=== PATIENT | female | born 2000 | race American Indian/Alaskan Native ===

== ENCOUNTER 2021-06-29 14:40 | Outpatient (CLI) | payer OTHER ==
[2021-06-29 15:17] LABS: Basophils # (Auto) 0.1 K/mm3 (0.0-0.1); Eosinophils # (Auto) 0.2 K/mm3 (0.0-0.4); Eosinophils % (Auto) 2.3 % (0.0-4.3); Monocytes # (Auto) 1.1 K/mm3 (0.0-0.8); Monocytes % (Auto) 10.3 % (0.0-7.3)
[2021-06-29 15:38] LABS: % Iron Saturation 9.83 %; Alanine Aminotransferase 21 units/L (7-56); Albumin 4.3 g/dL (3.9-5); BUN/Creatinine Ratio 14; Blood Urea Nitrogen 11 mg/dL (7-17); Chol/HDL Ratio 3.97 %; HDL Cholesterol 46 mg/dL (40-59); Hemolysis Index 5; Iron 29 ug/dL (37-170); LDL Cholesterol,Direct 122 mg/dL (50-130); Total Iron Binding Capacity 295 mcg/dL (250-450)
[2021-06-29 15:42] LABS: Hemoglobin 12.4 gm/dl (10.1-14.3); Red Blood Count 5.01 M/mm3 (3.65-5.03)
[2021-06-29 15:43] LABS: Basophils % (Auto) 0.6 % (0.0-1.8); Hematocrit 39.5 % (30.3-42.9); Lymphocytes # (Auto) 2.1 K/mm3 (1.2-5.4); Lymphocytes % (Auto) 20.1 % (13.4-35.0); Mean Corpuscular HGB Conc 31 % (30-34); Mean Corpuscular Volume 79 fl (79-97); Platelet Count 387 K/mm3 (140-440); Red Cell Distribution Width 16.6 % (13.2-15.2)
== END 2021-06-29 14:41 | disposition home or self-care (01) ==
LOC: LAB 14:40
PROVIDERS: ATTEND Surgery
DX: Z01.812 Encounter for preprocedural laboratory examination (principal); Z13.21 Encounter for screening for nutritional disorder; Z13.1 Encounter for screening for diabetes mellitus; Z13.29 Encounter for screening for other suspected endocrine disorder; K30 Functional dyspepsia; E55.9 Vitamin D deficiency, unspecified; E66.01 Morbid (severe) obesity due to excess calories
CPT/HCPCS: 36415; 80053; 80061; 82306; 82607; 82728; 83036; 83550; 84443; 84703; 85025; 85730

== ENCOUNTER 2021-08-09 11:00 | Outpatient (CLI) | payer OTHER | END 2021-08-09 11:01 | disposition home or self-care (01) | LOC: SLR 11:00 | PROVIDERS: ATTEND Surgery | DX: G47.30 Sleep apnea, unspecified (principal) | CPT/HCPCS: 95810 ==

== ENCOUNTER → 2021-08-16 | Outpatient (CLI) | payer OTHER | END | disposition home or self-care (01) | LOC: SLR 11:00 | PROVIDERS: ATTEND Surgery | DX: G47.33 Obstructive sleep apnea (adult) (pediatric) (principal) | CPT/HCPCS: 95811 ==

== ENCOUNTER 2021-09-12 07:19 | Day surgery (SDC) | payer OTHER ==
[~2021-09-12 07:19] MED LIST: SODIUM CHLORIDE 0.9% 1000 ML 1,000 ML IV SCH
--- NOTE | 2021-09-12 09:13 | Operative Report ---
Operative Report Operative Report: DATE: 09/12/2021 SURGERY: Upper endoscopy. SURGEON: Toshia Garces M.D. PROCEDURE: EGD with biopsy PRE OP DX: morbid obesity, GERD POST OP DX: morbid obesity, GERD TYPE OF ANESTHESIA: MAC. ESTIMATED BLOOD LOSS: None. COMPLICATIONS: None. SPECIMENS REMOVED: antral biopsy FINDINGS: 1. Small hiatal hernia. 2. Otherwise, normal esophagus, stomach and first portion of duodenum. INDICATIONS:INDICATION FOR PROCEDURE: Patient is a 21-year-old female with a long history of morbid obesity. She is planned to have a weight loss procedure and is here for preoperative planning EGD. PROCEDURE DETAILS: After consent was reviewed, patient was taken back to the operating room where patient was placed in the left lateral decubitus position and a bite block was placed in the mouth. After a time-out was called, MAC anesthesia was initiated. I then passed the endoscope into her oropharynx, into her esophagus, visualized the entire esophagus, which was all within normal limits. Z-line was noted to about 40cm from incisors. I then visualized the stomach and the first portion of the duodenum and there were no abnormalities I could clearly visualize except for antral gastritis. A cold forceps biopsy of the antrum was taken and will be sent to pathology to evaluate for H.pylori. I then retroflexed the scope in the stomach and visualized the hiatus and I could see a small hiatal hernia. I then desufflated the stomach and removed the endoscope. Patient tolerated procedure well and was transferred to recovery room in good and stable condition.
--- NOTE | 2021-09-12 09:15 | Discharge Summary ---
Providers - Providers Date of Admission: 09/12/2021 Date of discharge: 09/12/21 Attending physician: KELSI GUTIERREZ MD Primary care physician: [employer] Hospitalization Reason for admission: pre-op egd Condition: Good Procedures: egd with bx Hospital course: Pt presented for a pre-op EGD as part of planning for up coming bariatric surgery. Procedure was uneventful and pt recovered well and was discharged to home. Disposition: 01 HOME / SELF CARE / HOMELESS Final Discharge Diagnosis (Prints w/discharge instructions): morbid obesity, gerd Core Measure Documentation - Palliative Care Palliative Care/ Comfort Measures: Not Applicable - Core Measures Any of the following diagnoses?: none Exam - Physical Exam Narrative exam: unchanged from pre-op Plan Activity: advance as tolerated Diet: low carbohydrate Follow up with: PRIMARY CARE, [Primary Care Provider] - 7 Days Forms: Work/School Excuse Out Patient, Outpatient Surgery DC Inst.
--- NOTE | 2021-09-12 09:41 | Anesthesia Day of Surgery ---
Anesthesia Day of Surgery - Day of Surgery Patient Examined: Yes Patient H&P Reviewed: Yes Patient is NPO: Yes
--- NOTE | 2021-09-12 09:43 | Anesthesia Consultation ---
Anesthesia Consult and Med Hx Date of service: 09/12/21 - Airway Anesthetic Teeth Evaluation: Good ROM Head & Neck: Adequate Mental/Hyoid Distance: Adequate Mallampati Class: Class III Intubation Access Assessment: Probably Good - Cardiac Exam Anesthetic Concerns: Pt has nose and tongue piercings that she states will not come out - Pre-Operative Health Status ASA Pre-Surgery Classification: ASA3 Proposed Anesthetic Plan: MAC - Pulmonary Hx Smoking: Yes Hx Sleep Apnea: No - Central Nervous System Hx Back Pain: Yes Hx Psychiatric Problems: Yes (Anxiety/Depresion) - Gastrointestinal Hx Gastroesophageal Reflux Disease: No - Hematic Hx Sickle Cell Disease: No - Other Systems Hx Obesity: Yes
[2021-09-12] MEDS ORDERED: LIDOCAINE MPF (2%) 20 MG/1 ML VIAL 5 ML ONE (10:59)
[2021-09-12] MEDS ORDERED: propofoL 200 MG/20 ML VIAL IV ONE ×2 (11:03→11:08)
--- NOTE | 2021-09-12 12:49 | Post Anesthesia Evaluation ---
- Post Anesthesia Evaluation Patient Participated: Yes Airway Patent: Yes Stable Respiratory Function: Yes Nausea/Vomiting: No Temp > 96.8F: Yes Pain Manageable: Yes Adequeate Hydration: Yes Anesthesia Complications: No Block Receding Appropriately: Not Applicable Patient on Ventilator: No
[2021-09-12 15:34] VITALS: BP 122/78
== END 2021-09-12 12:00 | disposition home or self-care (01) ==
LOC: GIO 07:19
PROVIDERS: ATTEND Surgery
DX: K21.9 Gastro-esophageal reflux disease without esophagitis (principal); E66.01 Morbid (severe) obesity due to excess calories; K29.70 Gastritis, unspecified, without bleeding; K44.9 Diaphragmatic hernia without obstruction or gangrene; F17.210 Nicotine dependence, cigarettes, uncomplicated; F32.9 Major depressive disorder, single episode, unspecified; F41.9 Anxiety disorder, unspecified; Z98.890 Other specified postprocedural states; Z68.41 Body mass index [BMI] 40.0-44.9, adult
CPT/HCPCS: 43239; 81025; 88305; 88342; J2704; J7030

== ENCOUNTER 2021-09-26 08:39 | Outpatient (CLI) | payer OTHER ==
[2021-09-26 09:15] LABS: Amphetamine Screen,Urine Negative; Benzodiazepines Screen,Urine Negative; Cannabinoid Screen,Urine Negative; Cocaine Screen,Urine Negative; Methadone Screen,Urine Negative; Opiate Screen,Urine Negative
--- NOTE | 2021-09-26 11:14 | Fluoroscopy Report ---
BARIUM SWALLOW Indication: K30 FUNCTIONAL DYSPEPSIA. Technique: Single and double contrast barium technique utilized to evaluate the esophagus. FINDINGS: To begin the exam, swallowing was evaluated in the lateral position under direct fluorosco py. Swallowing was normal. No mucosal irregularity, mass, mass effect, or critical stenosis. There were no abnormal tertiary c ontractions as seen with dysmotility. No gastroesophageal reflux. IMPRESSION: Unremarkable exam. Fluoroscopic time: 0.8 minutes Number of fluoroscopic images: 17 Signer Name: Wellington Kraft Jr, MD Signed: 09/26/2021 11:10 AM Workstation Name: [id number]
== END 2021-09-26 08:40 | disposition home or self-care (01) ==
LOC: FLUORO 08:39
PROVIDERS: ATTEND Surgery
DX: K30 Functional dyspepsia (principal); Z01.812 Encounter for preprocedural laboratory examination
CPT/HCPCS: 36415; 74221; 80307; G0480; 80320

== ENCOUNTER 2022-02-05 06:40 | Inpatient (IN) | payer OTHER ==
--- NOTE | 2022-02-01 11:55 | Anesthesia Consultation ---
Anesthesia Consult and Med Hx Date of service: 02/01/22 - Airway Anesthetic Teeth Evaluation: Good ROM Head & Neck: Adequate Mental/Hyoid Distance: Adequate Mallampati Class: Class III Intubation Access Assessment: Probably Good - Pre-Operative Health Status ASA Pre-Surgery Classification: ASA3 Proposed Anesthetic Plan: General - Pulmonary Hx Smoking: Yes Hx Asthma: No Hx Respiratory Symptoms: No (+2FS) COPD: Yes (PFTs show obstructive pattern) Hx Pneumonia: Yes Hx Sleep Apnea: Yes - Cardiovascular System Hx Hypertension: No Hx Heart Attack/AMI: No Hx Peripheral Vascular Disease: No - Central Nervous System Hx Back Pain: Yes Hx Psychiatric Problems: No - Gastrointestinal Hx Gastroesophageal Reflux Disease: No - Hematic Hx Anemia: No Hx Sickle Cell Disease: No - Other Systems Hx Alcohol Use: No Hx Substance Use: No Hx Cancer: No Hx Obesity: Yes - Additional Comments Anesthesia Medical History Comments: Cardiac/Pulmonary/Medical clearances reviewed
[2022-02-01 12:15] LABS: Alanine Aminotransferase 16 units/L (7-56); Albumin 4.2 g/dL (3.9-5); Blood Urea Nitrogen 15 mg/dL (7-17); Calcium 9.8 mg/dL (8.4-10.2); Hemolysis Index 6
[2022-02-01 12:16] LABS: BUN/Creatinine Ratio 21
[2022-02-01 12:18] LABS: Hematocrit 35.8 % (30.3-42.9); Hemoglobin 11.5 gm/dl (10.1-14.3); Mean Corpuscular HGB Conc 32 % (30-34); Mean Corpuscular Volume 78 fl (79-97); Platelet Count 374 K/mm3 (140-440); Red Blood Count 4.61 M/mm3 (3.65-5.03); Red Cell Distribution Width 16.9 % (13.2-15.2)
[~2022-02-05 06:40] MED LIST changes: +ENOXAPARIN 40 MG/0.4 ML INJ SUB-Q NR; +GABAPENTIN 500 MG/10 ML ORAL LIQD PO NR; +LACTATED RINGERS 1,000 ML IV SCH; +MIDAZOLAM 2 MG/2 ML INJ IV NR; +SCOPOLAMINE TRANSDERMAL PATCH 72 HR TD NR; -SODIUM CHLORIDE 0.9% 1000 ML 1,000 ML IV SCH; +methOCARBAMOL 1,000 MG in SODIUM CHLORIDE 0.9% 250ML 250 ML IV SCH; +metroNIDAZOLE/NS 500 MG/100 ML 500 MG/100 ML BAG IV SCH
[2022-02-05] MEDS ORDERED: ENOXAPARIN 40 MG/0.4 ML INJ SUB-Q ONE (08:54)
[2022-02-05] MEDS ORDERED: ENOXAPARIN 40 MG/0.4 ML INJ SUB-Q NR (09:00)
[2022-02-05] MEDS ORDERED: MAGNESIUM SULFATE 2 GM/50 ML BAG IV ONE (09:54)
[2022-02-05] MEDS ORDERED: SCOPOLAMINE TRANSDERMAL PATCH 72 HR TD SCH (10:00)
[2022-02-05] MEDS: ACETAMINOPHEN IV 1,000 MG/100 ML BOTTLE IV NR ×2 (10:00→17:05)
[2022-02-05] MEDS ORDERED: SUCCINYLCHOLINE CHLORIDE 200 MG/10 ML INJ MDV ONE (10:09)
[2022-02-05] MEDS ORDERED: LIDOCAINE MPF (2%) 20 MG/1 ML VIAL 5 ML ONE (10:09)
[2022-02-05] MEDS ORDERED: fentaNYL 100 MCG/2 ML INJ ONE (10:09)
[2022-02-05] MEDS ORDERED: ROCURONIUM 50 MG/5 ML INJ IV ONE (10:09)
[2022-02-05] MEDS ORDERED: propofoL 200 MG/20 ML VIAL IV ONE ×7 (10:10→12:05)
[2022-02-05] MEDS ORDERED: BUPIVACAINE/PF (0.25%) 2.5 MG/ML 30 ML VIAL INFILTRATI ONE ×2 (10:21→11:42)
[2022-02-05] MEDS ORDERED: LIDOCAINE (2%) 20 MG/1 ML VIAL 20 ML MDV INFILTRATI ONE ×2 (10:21→11:43)
[2022-02-05] MEDS ORDERED: KETAMINE/STERILE WATER 50 MG/ML SYRINGE ONE (10:52)
[2022-02-05] MEDS ORDERED: MIDAZOLAM 2 MG/2 ML INJ ONE (10:53)
[2022-02-05] MEDS ORDERED: SODIUM CHLORIDE 0.9% IRR 1,500 ML BOTTLE IR ONE (11:43)
[2022-02-05] MEDS ORDERED: SUGAMMADEX SODIUM 200 MG/2 ML VIAL IV ONE (12:03)
[2022-02-05] MEDS ORDERED: HYDROmorphone 0.5 MG/0.5 ML INJ IV PRN (13:00)
--- NOTE | 2022-02-05 13:04 | Operative Report ---
Operative Report Operative Report: DATE:02/05/2022 Surgeon: Toshia Garces MD Quality Head surgeon: Amanda Morgan CSA MD Pre-op Dx: morbid obesity Post-op Dx: morbid obesity Procedure: 1. laparoscopic sleeve gastrectomy, Anesthesia: GETA, TAP block EBL: <10ml Specimen: gastric remnant Complication: none immediate Indication: 22 year old female with a history of morbid obesity . Pt is here for sleeve gastrectomy for weight loss to achieve healthier weight and improve or resolve her co-morbidities. She expressed understanding of the risks and benefits. PROCEDURE IN DETAIL: After consent was reviewed, patient was taken back to the operating room, where patient was placed supine on the bed with both arms out. The patient's legs were doubly strapped to the bed. Patient had a foot board in place. Patient had a body warmer placed by anesthesia. General anesthesia was induced with successful endotracheal intubation. Patient was then prepped and draped in normal sterile surgical fashion. After a time-out was called, I made a stab incision in the left subcostal area and placed a Veress needle through this incision and insufflated the abdomen to 15 mmHg pressure. I then counted down a handsbreadth below the xiphoid process in the midline and slightly left lateral injected local anesthetic and made about 1 cm transverse incision. I then used a 5-mm Optiview trocar to enter into the abdomen. There was no gross injury to any intra-abdominal structures. I then placed a 30-degree scope through this port and inspected the abdomen. I then placed a 5-mm port in the right upper quadrant, and 1 epigastric area below the costovertebral angle. I then placed a 15-mm port about a handsbreadth in the right mid abdomen. After which a 5mm port was placed in left upper quadrant port along the anterior axillary line in a similar fashion. A liver retractor was placed to the epigastric port to elevate the left lateral lobe and liver. The anterior gastric fat pad was excised. Starting approximately 6 cm proximal to the pylorus, using a Enseal device the short gastrics were taken all the way to the left tyshawn. Once the lateral portion of the stomach was mobile anesthesia passed a 40 Macedonian bougie along the medial aspect to act as a stent. Using serial firings of endoscopic stapler to gold, followed by 4 blue, the lateral portion of the stomach was transected making sure to did not close to the 2 cm to the incisura. All staple loads were supported with Ethicon buttress strips. The sleeve stomach was seen to be witho ut kink obstruction or twisting. The pressure was decreased to 12 mmHg. The staple line was inspected for approximately 5 minutes. There was no significant bleeding appreciated except for a slight loose at the most distal portion of the staple line. Bleeding was minimal and easily controlled with minimal cautery. Vistaseal was then sprayed along the entirety of the staple line. The liver re tractor was removed. This was after the gastric remnant was grasped and pulled into the 15 mm trocar site. The stomach was extracted via the 15 mm trocar site. After the fascia had to be stretched with a Mago clamp to easily remove the stomach, the fascia was closed using a deep franklyn device at the level of the fascia with an 0 PDS. trocars were removed under direct visualization. A TAP block was performed in transverse abdominis plane at the mid axillary line bilaterally using 60cc of 0.25% marcaine. All skin incisions were closed with 4-0 Monocryl followed by Dermabond. Patient was awoken, extubated, and taken to recovery stable condition. All counts were correct.
[2022-02-05] MEDS: ACETAMINOPHEN IV 1,000 MG/100 ML BOTTLE IV SCH ×3 (13:29→21:36)
[2022-02-05] MEDS: SIMETHICONE 80 MG CHEW TAB PO PRN ×2 (13:33→23:44)
[2022-02-05] MEDS: PANTOPRAZOLE 40 MG INJ IV SCH (13:34)
[2022-02-05] MEDS: KETOROLAC 30 MG/1 ML INJ IV SCH ×2 (13:51→21:35)
[2022-02-05] MEDS ORDERED: METOCLOPRAMIDE 10 MG/2 ML INJ IV PRN (14:00)
[2022-02-05] MEDS ORDERED: HYDROcodone/Acetaminophen 7.5-325MG-15ML ORAL LIQD PO PRN (14:00)
--- NOTE | 2022-02-05 14:25 | Post Anesthesia Evaluation ---
- Post Anesthesia Evaluation Patient Participated: Yes Airway Patent: Yes Stable Respiratory Function: Yes Nausea/Vomiting: No Temp > 96.8F: Yes Pain Manageable: Yes Adequeate Hydration: Yes Anesthesia Complications: No
[2022-02-05] MEDS ORDERED: hydrALAZINE 20 MG/1 ML INJ IV PRN (14:40)
[2022-02-05] MEDS: HYDROmorphone 0.5 MG/0.5 ML INJ IV PRN ×2 (14:44→23:43)
[2022-02-05] MEDS: LACTATED RINGERS 1,000 ML IV SCH (14:46)
[2022-02-05] MEDS: ONDANSETRON 4 MG/2 ML INJ IV PRN ×2 (14:50→21:36)
[2022-02-05] MEDS: metroNIDAZOLE/NS 500 MG/100 ML 500 MG/100 ML BAG IV SCH ×2 (16:57→23:43)
[2022-02-05] MEDS: ceFAZolin/NS 1 GM/50 ML 1 GM/50 ML BAG IV SCH (17:04)
[2022-02-06] MEDS: ceFAZolin/NS 1 GM/50 ML 1 GM/50 ML BAG IV SCH (01:25)
[2022-02-06] MEDS: KETOROLAC 30 MG/1 ML INJ IV SCH ×4 (02:38→20:54)
[2022-02-06] MEDS: ACETAMINOPHEN IV 1,000 MG/100 ML BOTTLE IV SCH ×2 (04:38→11:41)
[2022-02-06 04:52] LABS: Basophils % (Auto) 0.1 % (0.0-1.8); Hematocrit 33.8 % (30.3-42.9); Hemoglobin 10.7 gm/dl (10.1-14.3); Lymphocytes # (Auto) 0.8 K/mm3 (1.2-5.4); Lymphocytes % (Auto) 6.2 % (13.4-35.0); Mean Corpuscular HGB Conc 32 % (30-34); Mean Corpuscular Volume 78 fl (79-97); Monocytes # (Auto) 1.2 K/mm3 (0.0-0.8); Monocytes % (Auto) 9.6 % (0.0-7.3); Platelet Count 352 K/mm3 (140-440); Red Blood Count 4.32 M/mm3 (3.65-5.03); Red Cell Distribution Width 16.5 % (13.2-15.2)
[2022-02-06 05:20] LABS: Alanine Aminotransferase 16 units/L (7-56); Albumin 4.2 g/dL (3.9-5); Blood Urea Nitrogen 7 mg/dL (7-17); Calcium 9.5 mg/dL (8.4-10.2); Hemolysis Index 3
[2022-02-06 05:26] LABS: BUN/Creatinine Ratio 12
[2022-02-06] MEDS: LACTATED RINGERS 1,000 ML IV SCH (08:49)
[2022-02-06] MEDS: metroNIDAZOLE/NS 500 MG/100 ML 500 MG/100 ML BAG IV SCH (08:49)
[2022-02-06] MEDS: ENOXAPARIN 40 MG/0.4 ML INJ SUB-Q SCH (09:51)
[2022-02-06] MEDS: PANTOPRAZOLE 40 MG INJ IV SCH (09:51)
--- NOTE | 2022-02-06 14:52 | Post Anesthesia Evaluation ---
- Post Anesthesia Evaluation Patient Participated: Yes Airway Patent: Yes Stable Respiratory Function: Yes Nausea/Vomiting: Yes (pt reports n/v after an IV med was administered upon arrival to the floor) Temp > 96.8F: Yes Pain Manageable: Yes Adequeate Hydration: Yes Anesthesia Complications: No Block Receding Appropriately: No Patient on Ventilator: No Other Comments: pt was highly satisfied with anesthesia team; reports no recall, pain well managed
--- NOTE | 2022-02-06 15:47 | Progress Note ---
Assessment and Plan Postop day #1 status post laparoscopic sleeve gastrectomy. Afebrile and stable but with suboptimal amount of oral intake to feel confident she will maintain hydration independently at home. We will keep another night encourage patient to increase frequency of sipping oral liquids. Likely discharge tomorrow. Subjective Date of service: 02/06/22 Narrative: No acute events overnight. Patient says that she overall feels well but she is unable to drink the minimum of 30 ounces in order to be discharged today. She says that she is trying to drink more but she has to get used to it. She denies any nausea or vomiting but feels mild discomfort in her chest. Objective Vital Signs - 12hr 02/06/22 02/06/22 02/06/22 04:11 06:00 08:12 Temperature 97.8 F 97.9 F Pulse Rate 82 95 H Respiratory 20 18 Rate Blood Pressure 142/89 134/76 O2 Sat by Pulse 95 100 95 Oximetry 02/06/22 02/06/22 09:21 12:00 Temperature 97.9 F Pulse Rate 68 Respiratory 18 Rate Blood Pressure 121/76 O2 Sat by Pulse 95 97 Oximetry - General physical appearance well developed, no distress, no pain, obese - Eyes PERRL - ENT normal nares, no hearing loss - Respiratory normal expansion, normal respiratory effort - Abdomen soft, other (Incisions clean, dry, intact. Appropriately tender to palpation) - Labs 02/06/22 04:16 02/06/22 04:16 Diabetes panel 02/06/22 Range/Units 04:16 Sodium 139 (137-145) mmol/L Potassium 4.9 D (3.6-5.0) mmol/L Chloride 104.3 (98-107) mmol/L Carbon Dioxide 26 (22-30) mmol/L BUN 7 (7-17) mg/dL Creatinine 0.6 (0.6-1.2) mg/dL Glucose 91 (65-100) mg/dL Calcium 9.5 (8.4-10.2) mg/dL AST 15 (5-40) units/L ALT 16 (7-56) units/L Alkaline Phosphatase 68 (35-129) units/L Total Protein 7.5 (6.3-8.2) g/dL Albumin 4.2 (3.9-5) g/dL Calcium panel 02/06/22 Range/Units 04:16 Calcium 9.5 (8.4-10.2) mg/dL Albumin 4.2 (3.9-5) g/dL Pituitary panel 02/06/22 Range/Units 04:16 Sodium 139 (137-145) mmol/L Potassium 4.9 D (3.6-5.0) mmol/L Chloride 104.3 (98-107) mmol/L Carbon Dioxide 26 (22-30) mmol/L BUN 7 (7-17) mg/dL Creatinine 0.6 (0.6-1.2) mg/dL Glucose 91 (65-100) mg/dL Calcium 9.5 (8.4-10.2) mg/dL Adrenal panel 02/06/22 Range/Units 04:16 Sodium 139 (137-145) mmol/L Potassium 4.9 D (3.6-5.0) mmol/L Chloride 104.3 (98-107) mmol/L Carbon Dioxide 26 (22-30) mmol/L BUN 7 (7-17) mg/dL Creatinine 0.6 (0.6-1.2) mg/dL Glucose 91 (65-100) mg/dL Calcium 9.5 (8.4-10.2) mg/dL Total Bilirubin 0.40 (0.1-1.2) mg/dL AST 15 (5-40) units/L ALT 16 (7-56) units/L Alkaline Phosphatase 68 (35-129) units/L Total Protein 7.5 (6.3-8.2) g/dL Albumin 4.2 (3.9-5) g/dL
[2022-02-07] MEDS: KETOROLAC 30 MG/1 ML INJ IV SCH ×2 (01:19→08:22)
[2022-02-07 06:00] LABS: Basophils % (Auto) 0.4 % (0.0-1.8); Eosinophils % (Auto) 0.1 % (0.0-4.3); Hematocrit 32.5 % (30.3-42.9); Hemoglobin 10.4 gm/dl (10.1-14.3); Lymphocytes # (Auto) 2.9 K/mm3 (1.2-5.4); Lymphocytes % (Auto) 27.1 % (13.4-35.0); Mean Corpuscular HGB Conc 32 % (30-34); Mean Corpuscular Volume 80 fl (79-97); Monocytes % (Auto) 9.2 % (0.0-7.3); Platelet Count 287 K/mm3 (140-440); Red Blood Count 4.09 M/mm3 (3.65-5.03); Red Cell Distribution Width 16.6 % (13.2-15.2)
[2022-02-07 06:35] LABS: Alanine Aminotransferase 13 units/L (7-56); BUN/Creatinine Ratio 10; Blood Urea Nitrogen 8 mg/dL (7-17); Calcium 9.1 mg/dL (8.4-10.2); Hemolysis Index 4
[2022-02-07 08:06] VITALS: BP 138/86
[2022-02-07] MEDS: LACTATED RINGERS 1,000 ML IV SCH (08:23)
[2022-02-07] MEDS: PANTOPRAZOLE 40 MG INJ IV SCH (10:13)
[2022-02-07] MEDS: ENOXAPARIN 40 MG/0.4 ML INJ SUB-Q SCH (10:13)
--- NOTE | 2022-02-07 11:22 | Discharge Summary ---
Providers - Providers Date of Admission: 02/05/22 08:02 Date of discharge: 02/07/22 Attending physician: KELSI GUTIERREZ MD 02/05/22 13:00 Physical Therapy Evaluation and Treat [CONS] Routine Comment: Reason For Exam: s/p bariatric surgery Primary care physician: ARMOND TABOR MD Hospitalization Reason for admission: s/p bariatric surgery Condition: Good Procedures: lap gastric sleeve Hospital course: Patient had an uneventful sleeve gastrectomy for treatment of morbid obesity. Patient did well after surgery but was slow to getting a minimum of 30 ounces during her first 24 hours. By postop day 2 she was tolerating liquids fairly easily. She remained with good pain control and denying nausea or vomiting. She was ambulating independently. She was discharged on postop day #2 showing no gross clinical signs of leak or bleeding. Patient is to remain on clear liquids and advance as tolerated per the bariatric protocol. Patient was seen in the office in 2 weeks. Disposition: 01 HOME / SELF CARE / HOMELESS Final Discharge Diagnosis (Prints w/discharge instructions): morbid obesity Core Measure Documentation - Palliative Care Palliative Care/ Comfort Measures: Not Applicable - Core Measures Any of the following diagnoses?: none Exam - Constitutional Vitals: Temp Pulse Resp BP Pulse Ox 97.4 F L 71 16 138/86 97 02/07/22 07:54 02/07/22 08:31 02/07/22 08:31 02/07/22 07:54 02/07/22 08:53 General appearance: Present: no acute distress, obese - EENT Eyes: Present: PERRL - Respiratory Respiratory effort: normal - Cardiovascular Heart Sounds: Present: S1 & S2 - Extremities Extremities: no ischemia - Abdominal General gastrointestinal: Present: soft, non-tender - Psychiatric Psychiatric: appropriate mood/affect - Neurologic Neurologic: focal deficits Plan Activity: advance as tolerated Diet: clear liquids Wound: open to air, keep clean and dry Follow up with: PRIMARY CAREMD [Primary Care Provider] - 7 Days
== END 2022-02-07 13:45 | disposition home or self-care (01) | DRG 621 ==
LOC: 3A 08:02 → 4A 11:05
PROVIDERS: ADMIT Surgery; ATTEND Surgery
PROC: 0DB64Z3 Excision of Stomach, Percutaneous Endoscopic Approach, Vertical (ICD-10-PCS; principal; 2022-02-05)
DX: E66.01 Morbid (severe) obesity due to excess calories (principal); Z68.41 Body mass index [BMI] 40.0-44.9, adult; F41.9 Anxiety disorder, unspecified; Z20.822 Contact with and (suspected) exposure to COVID-19
CPT/HCPCS: 36415; 80053; 84703; 85025; 85027; 88307; 88342; G0378; J3490; J7517; C9113; J0131; J0330; J0690; J1170; J1650; J1885; J2250; J2405; J2704; J3010; J3475; J7120; U0003